=== PATIENT | female | born 1990 | race Caucasian/White ===

== ENCOUNTER 2017-11-08 13:13 | Emergency (ER) | payer OTHER, BC ==
[2017-11-08 14:44] VITALS: BP 116/79
== END 2017-11-08 14:45 | disposition home or self-care (01) ==
LOC: ED 13:13
DX: S60.512A Abrasion of left hand, initial encounter (principal); S60.212A Contusion of left wrist, initial encounter; S60.222A Contusion of left hand, initial encounter; V43.52XA Car driver injured in collision with other type car in traffic accident, initial encounter; Y92.414 Local residential or business street as the place of occurrence of the external cause